=== PATIENT | male | born 1975 | race Caucasian/White ===

== ENCOUNTER 2018-10-05 07:52 | Day surgery (SDC) | payer OTHER, BC ==
[~2018-10-05 07:52] MED LIST: Dexamethasone 4 MG/ML 5 ML MDV ONE; EPINEPHrine 1 MG/ML SDV ONE; Ketorolac 30 MG/ML SDV ONE; Lactated Ringers 1,000 ML IV SCH; Lactated Ringers 1,000 ML ONE; Lidocaine 1% 4 ML ONE; Lidocaine 1% 6 ML ONE; Lidocaine 1%/Sod Bicarbonate in NS 8.4% 1 ML Syringe IDERM PRN; Midazolam 1 MG/ML 2 ML SDV ONE; Ondansetron 4 MG/2 ML SDV ONE; Propofol 200 MG/20 ML SDV ONE; Rocuronium 50 MG/5 ML Vial ONE; Ropivacaine 0.5% 5 MG/ML 30 ML SDV ONE; Sodium Chloride 0.9% 10 ML Syringe FLUSH PRN; Succinylcholine/Normal Saline 100 MG/5 ML Syringe ONE; ceFAZolin 1 GM Vial ONE; fentaNYL 250 MCG/5 ML SDV ONE
--- NOTE | 2018-10-05 08:50 | PCM.PREANE ---
Preanesthetic Assessment - Anesthesia/Transfusion/Family Hx Anesthesia History: Prior Anesthesia Without Reaction Family History of Anesthesia Reaction: No Transfusion History: No Prior Transfusion(s) - Review of Systems General: No Symptoms Pulmonary: No Symptoms, Other (DEE, CPAP use. Does not comply with wearing it every night.) Cardiovascular: No Symptoms Gastrointestinal: No Symptoms Neurological: No Symptoms Other: Reports: None - Physical Assessment NPO Status Date: 10/04/18 NPO Status Time: 23:00 O2 Sat by Pulse Oximetry: 95 Respiratory Rate: 16 Vital Signs: Last Vital Signs Temp 36.3 C 10/05/18 08:00 Pulse 72 10/05/18 08:00 Resp 16 10/05/18 08:00 BP 121/81 10/05/18 08:00 Pulse Ox 95 10/05/18 08:00 Weight: 133.356 kg ASA Class: 2 Mental Status: Alert & Oriented x3 Airway Class: Mallampati = 3 Dentition: Reports: Normal Dentition Thyro-Mental Finger Breadths: 3 Mouth Opening Finger Breadths: 3 ROM/Head Extension: Full Lungs: Clear to Auscultation, Normal Respiratory Effort Cardiovascular: Regular Rate, Regular Rhythm - Lab Values: Laboratory Last Values MRSA (PCR) Negative 10/03/18 16:12 - Allergies Allergies/Adverse Reactions: Allergies Allergy/AdvReac Type Severity Reaction Status Date / Time No Known Allergies Allergy Verified 10/04/18 12:07 - Anesthesia Plan Pre-Op Medication Ordered: Anxiolytic - Acknowledgements Anesthesia Type Planned: General Anesthesia, Regional Block Pt an Appropriate Candidate for the Planned Anesthesia: Yes Alternatives and Risks of Anesthesia Discussed w Pt/Guardian: Yes Pt/Guardian Understands and Agrees with Anesthesia Plan: Yes PreAnesthesia Questionnaire HEENT History: Reports: Hard of Hearing, Other (See Below) Other HEENT History: hearing aids Cardiovascular History: Reports: Hypertension Respiratory History: Reports: Sleep Apnea Gastrointestinal History: Reports: None Genitourinary History: Reports: None Musculoskeletal History: Reports: Other (See Below) Other Musculoskeletal History: right shoulder pain Neurological History: Reports: None Psychiatric History: Reports: Anxiety Endocrine/Metabolic History: Reports: Obesity/BMI 30+ Hematologic History: Reports: None Immunologic History: Reports: None Oncologic (Cancer) History: Reports: None Dermatologic History: Reports: None - Past Surgical History Head Surgeries/Procedures: Reports: None HEENT Surgical History: Reports: None Respiratory Surgical History: Reports: None Female Surgical History: Reports: None Male Surgical History: Reports: None Endocrine Surgical History: Reports: None Neurological Surgical History: Reports: None Musculoskeletal Surgical History: Reports: Other (See Below) Other Musculoskeletal Surgeries/Procedures:: right ankle surgery with hardware Oncologic Surgical History: Reports: None Dermatological Surgical History: Reports: None - SUBSTANCE USE Smoking Status *Q: Current Every Day Smoker Recreational Drug Use History: No - HOME MEDS Home Medications: Home Meds . [No Known Home Meds] 10/04/18 [History] - CURRENT (IN HOUSE) MEDS Current Meds: Current Medications Epinephrine HCl (Adrenalin) 3 mg .XX ONETIME ONE Stop: 10/05/18 09:01 Lactated Ringer's (Ringers, Lactated) 1,000 mls @ 125 mls/hr IV ASDIRECTED DAPHNE Stop: 10/05/18 23:00 Lidocaine/Sodium Bicarbonate (Buffered Lidocaine 1% In Ns 8.4%) 0.25 ml IDERM ONETIME PRN PRN Reason: Prior to IV Start Stop: 10/05/18 23:00 Sodium Chloride (Saline Flush) 10 ml FLUSH ASDIRECTED PRN PRN Reason: Keep Vein Open Stop: 10/05/18 23:00 Discontinued Medications Cefazolin Sodium (Ancef) Confirm Administered Dose 3 gm .ROUTE .STK-MED ONE Stop: 10/05/18 06:24 Dexamethasone (Dexamethasone) Confirm Administered Dose 20 mg .ROUTE .STK-MED ONE Stop: 10/05/18 06:24 Epinephrine HCl (Adrenalin) Confirm Administered Dose 1 mg .ROUTE .STK-MED ONE Stop: 10/05/18 05:54 Fentanyl (Sublimaze) Confirm Administered Dose 250 mcg .ROUTE .STK-MED ONE Stop: 10/05/18 06:24 Lidocaine HCl (Xylocaine-Mpf 1%) Confirm Administered Dose 4 mls @ as directed .ROUTE .STK-MED ONE Stop: 10/05/18 05:54 Lidocaine HCl (Xylocaine-Mpf 1%) Confirm Administered Dose 6 mls @ as directed .ROUTE .STK-MED ONE Stop: 10/05/18 06:24 Lactated Ringer's (Ringers, Lactated) Confirm Administered Dose 1,000 mls @ as directed .ROUTE .STK-MED ONE Stop: 10/05/18 06:24 Ketorolac Tromethamine (Toradol) Confirm Administered Dose 30 mg .ROUTE .ST- MED ONE Stop: 10/05/18 06:24 Midazolam HCl (Versed 1 Mg/Ml) Confirm Administered Dose 2 mg .ROUTE .ST-MED ONE Stop: 10/05/18 06:24 Ondansetron HCl (Zofran) Confirm Administered Dose 4 mg .ROUTE .[facility]-MED ONE Stop: 10/05/18 06:24 Propofol (Diprivan 20 Ml) Confirm Administered Dose 400 mg .ROUTE .ST-MED ONE Stop: 10/05/18 06:24 Rocuronium [place] (Zemuron) Confirm Administered Dose 50 mg .ROUTE .[facility]-MED ONE Stop: 10/05/18 06:24 Ropivacaine (Naropin 0.5%) Confirm Administered Dose 30 ml .ROUTE .[facility]-MED ONE Stop: 10/05/18 05:54 Succinylcholine Chloride (Succinylcholine In Ns Pf) Confirm Administered Dose 100 mg .ROUTE .ST-MED ONE Stop: 10/05/18 06:24
[2018-10-05] MEDS ORDERED: EPINEPHrine 1 MG/ML 30 ML MDV ONE (09:00)
--- NOTE | 2018-10-05 09:49 | PCM.SN ---
- Free Text/Narrative Note: Anesthesia Note: (Right Interscalene Block Note) Date: 10/05/2018 Time Out: 899 Start: 909 Stop: 928 Surgical Procedure: Right SVA WITH SLAP repair vs bicepts tenodesis Diagnosis Superior Glenoid Labrum lesion of right shoulder. Current Procedure: Right interscalene block under US guidance for postoperative pain control requested by Dr. Cruz. Patient chart reviewed, risk/benefits discussed with patient, consent obtained. Patient positioned supine, monitors/alarms on, oxygen placed via nasal cannula at 2 LPM. IV sedation administered: Versed 2mg IV, Fentanyl 50mcg, & 100mcg IV given in prior to block placement. Right shoulder prepped with two chloropreps. Sterile drapes placed with aseptic technique noted. Under US guidance, right subclavian artery visualized along with the right brachial plexus. Plexus followed up to C6 cricoid level, and area localized with 2mls of 1% lidocaine. 22gauge 2 inch stimiplex needle advanced under US with 0.6mV with stimulation of biceps noted. Good stimulation noted with decreased voltage and absent at 0.2mVs. 1ml of Normal Saline injected with loss of stimulation noted to confirm needle not placed intraneurally. Incremental dosing of 5mls with negative aspiration noted prior to each injection of 0.5% ropivacaine with 1:200,000 epinephrine. Total volume=30mls. Please refer to nurses noted for vital signs. Ana Olivares CRNA
[2018-10-05] MEDS ORDERED: fentaNYL 100 MCG/2 ML SDV IVPUSH PRN (10:35)
[2018-10-05] MEDS ORDERED: Albuterol 0.083% 2.5 MG/3 ML Neb Soln NEB PRN (10:35)
[2018-10-05] MEDS ORDERED: HYDROmorphone 0.5 MG/0.5 ML Syringe IVPUSH PRN (10:35)
[2018-10-05] MEDS ORDERED: diphenhydrAMINE 50 MG/ML SDV IVPUSH PRN (10:35)
[2018-10-05] MEDS ORDERED: Ondansetron 4 MG/2 ML SDV IVPUSH PRN (10:35)
[2018-10-05] MEDS ORDERED: Neostigmine Methylsulfate 1 MG/ML 5 ML Syringe ONE (10:47)
[2018-10-05] MEDS ORDERED: HYDROmorphone 0.5 MG/0.5 ML Syringe ONE (11:18)
--- NOTE | 2018-10-05 11:49 | PCM.POSTAN ---
POST ANESTHESIA ASSESSMENT - MENTAL STATUS Mental Status: Alert - VITAL SIGNS Pulse Rate: 71 SaO2: 93 (2LPM nasal cannula) Resp Rate: 17 Blood Pressure: 127/90 Temperature: 36.7 C - RESPIRATORY Respiratory Status: Respiratory Rate WNL, Airway Patent, O2 Saturation Stable, Supplemental Oxygen - CARDIOVASCULAR CV Status: Pulse Rate WNL, Blood Pressure Stable - GASTROINTESTINAL GI Status: No Symptoms - POST OP HYDRATION Hydration Status: Adequate & Stable
--- NOTE | 2018-10-05 13:08 | PCM48HPAN ---
Post Anesthesia Note - EVALUATION WITHIN 48HRS OF ANESTHETIC Vital Signs in Normal Range: Yes Patient Participated in Evaluation: Yes Respiratory Function Stable: Yes Airway Patent: Yes Cardiovascular Function Stable: Yes Hydration Status Stable: Yes Pain Control Satisfactory: Yes Nausea and Vomiting Control Satisfactory: Yes Mental Status Recovered: Yes (thumb tingling- no pain now) Pulse Rate: 71 Resp Rate: 16 Temperature: 98.0 F Blood Pressure: 127/90
--- NOTE | 2018-10-05 13:17 | PCM48HPAN ---
Post Anesthesia Note - EVALUATION WITHIN 48HRS OF ANESTHETIC Vital Signs in Normal Range: Yes Patient Participated in Evaluation: Yes Respiratory Function Stable: Yes Airway Patent: Yes Cardiovascular Function Stable: Yes Hydration Status Stable: Yes Pain Control Satisfactory: Yes Nausea and Vomiting Control Satisfactory: Yes Mental Status Recovered: Yes
--- NOTE | 2018-10-09 06:51 | PCM.OPNOTE ---
- General Post-Op/Procedure Note Date of Surgery/Procedure: 10/05/18 Operative Procedure(s): right shoulder video arthroscopy with biceps tenodesis and extensive debridement Pre Op Diagnosis: right shoulder SLAP tear with extensive synovitis Post-Op Diagnosis: Same Anesthesia Technique: General ET Tube, Regional Block Primary Surgeon: Dane Cruz Anesthesia Provider: Ana Olivares Cabinet Installer: Morenita Bravo EBL in mLs: 5 Complications: None Condition: Good
--- NOTE | 2018-10-09 07:42 | OR ---
DATE OF OPERATION: 10/05/2018 SURGEON: Dane Cruz MD OPERATION PERFORMED: 1. Right shoulder video arthroscopy with biceps tenodesis and extensive debridement. 2. Subscapularis tendon repair. PREOPERATIVE DIAGNOSIS: Right shoulder SLAP tear with extensive synovitis. POSTOPERATIVE DIAGNOSIS: 1. Right shoulder SLAP tear with extensive synovitis. 2. Subscapularis tendon rupture. ANESTHESIA: General endotracheal intubation with regional interscalene block. ANESTHESIA PROVIDER: Ana Olivares CRNA. MORTGAGE COORDINATOR: Morenita Bravo PA-C. ESTIMATED BLOOD LOSS: Less than 5 mL. COMPLICATIONS: None. CONDITION: Stable. DESCRIPTION OF PROCEDURE: The patient was identified in the preop holding area where proper site was marked and identified by the surgeon. The patient was taken back to the operating theater, where after adequate anesthesia, the patient was placed in the lazy left lateral decubitus position. A wedge was placed posteriorly. The patient was secured to the table. At this time, right shoulder was then sterilely prepped and draped in the usual sterile fashion. OR time-out was performed. The patient received 2 g of IV Ancef. At this time, 15 pounds of traction was applied to the right upper extremity. Standard posterior incision was made. Scope trocar was introduced into the glenohumeral joint. With use of spinal needle, outside-in technique was then used to create an anterior portal. At this time, it was noted the patient had an upper outer edge tear of the subscapularis tendon. There was extreme synovitis noted of the labrum. There was a SLAP tear noted that was completely unstable and there was significant degenerative tearing of the superior labrum and no ability to fix it at this time. At this time, it was decided we would do a biceps tenodesis with resection of the superior labrum and a subscapularis tendon repair. The rest of the undersurface of the rotator cuff was intact. There was no chondromalacia noted of the glenohumeral joint. At this time, #2 FiberWire was passed through the biceps tendon with the use of a spinal needle. A biceps tenotomy was performed and then the superior edge of the labrum was resected with resector back to a stable rim. At this time, attention was turned to the subscapularis tendon, and the FiberTape was placed through the upper outer edge of the subscapularis tendon and a 4.75 mm Arthrex SwiveLock anchor was placed near the footprint and tension was applied, which showed adequate repair of the upper outer edge of the subscapularis tendon. At this time, attention was turned to the subacromial space. There was significant bursitis noted in the subacromial space. A subacromial bursectomy was then performed with extensive debridement at this time. The #2 FiberWires were identified. They were tied in the anterior part of the rotator interval for a biceps tenodesis. The rest of the rotator cuff was intact. At this time, adequate saline was irrigated through the shoulder. A 3-0 nylon was used for closure of the skin. The patient was placed in a sterile soft dressing and a pillow sling and sent to the PACU in stable condition. DEMIAN /[id number]
== END 2018-10-05 13:28 | disposition home or self-care (01) ==
LOC: JD.SDS 07:52
PROVIDERS: ATTEND Orthopaedic Surgery
DX: S43.431A Superior glenoid labrum lesion of right shoulder, initial encounter (principal); M65.811 Other synovitis and tenosynovitis, right shoulder; I10 Essential (primary) hypertension; E11.9 Type 2 diabetes mellitus without complications; F17.220 Nicotine dependence, chewing tobacco, uncomplicated; E66.01 Morbid (severe) obesity due to excess calories; Z68.41 Body mass index [BMI] 40.0-44.9, adult; G47.33 Obstructive sleep apnea (adult) (pediatric); X58.XXXA Exposure to other specified factors, initial encounter
CPT/HCPCS: 29807; 29823; 29828; 87641; 94640; J0171; J0330; J0690; J1100; J1170; J1885; J2001; J2250; J2405; J2704; J2710; J2795; J3010; J7120; 01630; 64415